=== PATIENT | female | born 1955 | race Caucasian/White ===

== ENCOUNTER → 2017-02-10 | Outpatient (CLI) | payer MEDICARE | END | disposition home or self-care (01) | LOC: RAD 12:47 | PROVIDERS: ATTEND Nurse Practitioner | DX: R05 Cough (principal); Z98.1 Arthrodesis status | CPT/HCPCS: 71020 ==

== ENCOUNTER → 2017-03-22 | Outpatient (CLI) | payer MEDICARE | END | disposition home or self-care (01) | LOC: CFH 11:45 | PROVIDERS: ATTEND Nurse Practitioner | DX: Z12.2 Encounter for screening for malignant neoplasm of respiratory organs (principal); F17.210 Nicotine dependence, cigarettes, uncomplicated | CPT/HCPCS: G0297 ==

== ENCOUNTER 2017-05-05 18:14 | Inpatient (IN) | payer MEDICARE, OTHER ==
[~2017-05-05] VITALS: Ht 167.6 cm; Wt 106.2 kg
[2017-05-05] MEDS ORDERED: ALBUTEROL SULFATE 2.5 MG/3 ML NPPB ONE (18:30)
[2017-05-05 18:48] LABS: HEMATOCRIT 36.8 % (34.6-47.8)
[2017-05-05] MEDS ORDERED: ALBUTEROL SULFATE 2.5 MG/3 ML ONE (18:56)
[2017-05-05 19:01] LABS: ASPARTATE AMINO TRANSFERASE 16 U/L (15-37); BLOOD UREA NITROGEN 17 mg/dL (7-18)
[2017-05-05] MEDS ORDERED: ACETAMINOPHEN 500 MG TABLET PO ONE (20:00)
[2017-05-05] MEDS ORDERED: ACETAMINOPHEN 500 MG TABLET ONE (20:09)
[2017-05-05] MEDS ORDERED: IPRA0.2S35 INH (20:24)
[2017-05-05] MEDS ORDERED: ALPR-475 PO (20:24)
[2017-05-05] MEDS ORDERED: ASPI-496 PO (20:24)
[2017-05-05] MEDS ORDERED: ALBU8.5H3 INH (20:24)
[2017-05-05] MEDS ORDERED: hydrALAzine 20 MG/ML, 1ML IVPush PRN (21:00)
[2017-05-05] MEDS ORDERED: NITROGLYCERIN 0.4 MG BOTTLE (25 TABS) SL PRN (21:00)
[2017-05-05] MEDS ORDERED: ONDANSETRON 2MG/ML, 2ML IVPush PRN (21:00)
[2017-05-05] MEDS ORDERED: POLYETHYLENE GLYCOL 17 GM PACKET PO PRN (21:00)
[2017-05-05] MEDS ORDERED: AZITHROMYCIN 500 MG TABLET PO ONE (21:00)
[2017-05-05] MEDS ORDERED: ONDANSETRON ODT 4 MG PO PRN (21:00)
[2017-05-05] MEDS ORDERED: LABETALOL 5MG/ML, 20ML IVPush PRN (21:00)
[2017-05-05] MEDS ORDERED: AZITHROMYCIN 250 MG TABLET ONE (21:38)
[2017-05-05] MEDS ORDERED: HEPARIN 5,000 UNITS/ML, 1ML ONE (21:38)
[2017-05-05] MEDS: HEPARIN 5,000 UNITS/ML, 1ML SQ SCH (21:46)
[2017-05-05] MEDS ORDERED: ALBUTEROL/IPRATROPIUM 2.5MG/0.5MG, 3 ML ONE (21:56)
[2017-05-05 23:00] VITALS: BP 134/84
[2017-05-05] MEDS ORDERED: ALBUTEROL/IPRATROPIUM 2.5MG/0.5MG, 3 ML NPPB SCH (23:00)
[2017-05-05] MEDS ORDERED: ALBUTEROL/IPRATROPIUM 2.5MG/0.5MG, 3 ML NPPB PRN (23:00)
[2017-05-06] MEDS: D5%-0.45NACL+KCL 20MEQ 1,000 ML IV SCH ×3 (01:02→23:33)
[2017-05-06 03:00] VITALS: BP 120/79
[2017-05-06] MEDS: ALBUTEROL/IPRATROPIUM 2.5MG/0.5MG, 3 ML NPPB SCH ×6 (03:30→21:36)
[2017-05-06 05:07] VITALS: BP 134/84
[2017-05-06] MEDS: HEPARIN 5,000 UNITS/ML, 1ML SQ SCH ×3 (05:20→23:33)
[2017-05-06 06:13] LABS: HEMATOCRIT 34.7 % (34.6-47.8); HEMOGLOBIN 11.3 g/dL (11.7-16.4); WHITE BLOOD COUNT 9.2 x10^3/uL (3.4-10)
[2017-05-06 06:26] LABS: BLOOD UREA NITROGEN 19 mg/dL (7-18)
[2017-05-06 07:31] VITALS: BP 116/81
[2017-05-06] MEDS: PANTOPROZOLE 40MG TABLET PO SCH (07:46)
[2017-05-06] MEDS: ACETAMINOPHEN 325 MG TABLET PO PRN (07:50)
[2017-05-06] MEDS: AZITHROMYCIN 250 MG TABLET PO SCH (07:51)
[2017-05-06] MEDS: SENNA/DOCUSATE TABLET PO SCH (07:53)
[2017-05-06] MEDS: GUAIFENESIN/DM 100-10MG, 5ML UDC PO PRN ×2 (11:22→15:41)
[2017-05-06] MEDS: HYDROcodone/APAP 5/325 TABLET PO PRN ×2 (11:53→15:46)
[2017-05-06 14:35] VITALS: BP 132/72
[2017-05-06 19:51] VITALS: BP 111/70
[2017-05-07] MEDS: GUAIFENESIN/DM 100-10MG, 5ML UDC PO PRN ×2 (00:45→04:03)
[2017-05-07 01:58] VITALS: BP 118/74
[2017-05-07] MEDS: ALBUTEROL/IPRATROPIUM 2.5MG/0.5MG, 3 ML NPPB SCH ×5 (06:00→22:35)
[2017-05-07] MEDS: HEPARIN 5,000 UNITS/ML, 1ML SQ SCH ×2 (07:51→16:45)
[2017-05-07] MEDS: GUAIFENESIN 200 MG TABLET PO SCH ×4 (07:52→20:16)
[2017-05-07] MEDS: AZITHROMYCIN 250 MG TABLET PO SCH (07:52)
[2017-05-07] MEDS: PANTOPROZOLE 40MG TABLET PO SCH (07:52)
[2017-05-07] MEDS: SENNA/DOCUSATE TABLET PO SCH (07:52)
[2017-05-07 08:02] VITALS: BP 130/80
[2017-05-07] MEDS: ACETAMINOPHEN 325 MG TABLET PO PRN ×2 (09:56→20:16)
[2017-05-07] MEDS: D5%-0.45NACL+KCL 20MEQ 1,000 ML IV SCH ×2 (09:57→21:38)
[2017-05-07 14:00] VITALS: BP 123/65
[2017-05-07] MEDS: GUAIFENESIN/COD200MG-20MG/10ML LIQUID PO PRN (16:55)
[2017-05-07] MEDS ORDERED: POLYETHYLENE GLYCOL 17 GM PACKET PO PRN (21:00)
[2017-05-07] MEDS ORDERED: ONDANSETRON ODT 4 MG PO PRN (21:00)
[2017-05-07] MEDS ORDERED: LABETALOL 5MG/ML, 20ML IVPush PRN (21:00)
[2017-05-07] MEDS ORDERED: hydrALAzine 20 MG/ML, 1ML IVPush PRN (21:00)
[2017-05-07] MEDS ORDERED: ONDANSETRON 2MG/ML, 2ML IVPush PRN (21:00)
[2017-05-07] MEDS ORDERED: NITROGLYCERIN 0.4 MG BOTTLE (25 TABS) SL PRN (21:00)
[2017-05-07 21:14] VITALS: BP 125/80
[2017-05-08 02:37] VITALS: BP 146/86
[2017-05-08] MEDS: ALBUTEROL/IPRATROPIUM 2.5MG/0.5MG, 3 ML NPPB SCH ×4 (02:45→14:00)
[2017-05-08] MEDS: GUAIFENESIN/COD200MG-20MG/10ML LIQUID PO PRN (02:54)
[2017-05-08] MEDS: HEPARIN 5,000 UNITS/ML, 1ML SQ SCH ×2 (05:06→13:03)
[2017-05-08] MEDS: GUAIFENESIN 200 MG TABLET PO SCH (05:06)
[2017-05-08 07:03] LABS: BLOOD UREA NITROGEN 16 mg/dL (7-18)
[2017-05-08] MEDS: SENNA/DOCUSATE TABLET PO SCH (08:30)
[2017-05-08] MEDS: PANTOPROZOLE 40MG TABLET PO SCH (08:30)
[2017-05-08] MEDS: D5%-0.45NACL+KCL 20MEQ 1,000 ML IV SCH (08:30)
[2017-05-08] MEDS: AZITHROMYCIN 250 MG TABLET PO SCH (08:31)
[2017-05-08] MEDS: ACETAMINOPHEN 325 MG TABLET PO PRN ×2 (08:34→13:05)
[2017-05-08 08:42] VITALS: BP 147/85
[2017-05-08] MEDS ORDERED: AZIT250T89 PO (14:18)
[2017-05-08] MEDS ORDERED: PRED20TA PO (14:18)
[2017-05-08] MEDS ORDERED: GUAI10LI PO (14:18)
== END 2017-05-08 17:29 | disposition home or self-care (01) | DRG 683 ==
LOC: ED 20:48 → EDIP 20:50 → 3NE 23:04
PROVIDERS: ADMIT Family Medicine; ATTEND Family Medicine
DX: N17.9 Acute kidney failure, unspecified (principal); J44.1 Chronic obstructive pulmonary disease with (acute) exacerbation; E11.65 Type 2 diabetes mellitus with hyperglycemia; F32.9 Major depressive disorder, single episode, unspecified; F41.9 Anxiety disorder, unspecified; M79.89 Other specified soft tissue disorders; Z96.641 Presence of right artificial hip joint; Z17.1 Estrogen receptor negative status [ER-]; Z87.891 Personal history of nicotine dependence; Z98.1 Arthrodesis status; Z88.0 Allergy status to penicillin
CPT/HCPCS: 36415; 71010; 71020; 80048; 80053; 83880; 85025; 93005; 94640; 99285; J1644; J7613; J7620; J3480; J7512

== ENCOUNTER → 2017-10-03 | Outpatient (CLI) | payer MEDICARE ==
[~2017-10-03] MED LIST: ALBU8.5H8 INH; ALPR-475 PO; ASPI-496 PO; AZIT250T89 PO; GUAI10LI PO; IPRA0.2S35 INH; PRED20TA PO
== END | disposition home or self-care (01) ==
LOC: CFH 10:15
PROVIDERS: ATTEND Nurse Practitioner
DX: Z12.2 Encounter for screening for malignant neoplasm of respiratory organs (principal); R91.1 Solitary pulmonary nodule; F17.210 Nicotine dependence, cigarettes, uncomplicated
CPT/HCPCS: G0297

== ENCOUNTER → 2017-12-27 | Outpatient (CLI) | payer MEDICARE | END | disposition home or self-care (01) | LOC: CFH 10:21 | PROVIDERS: ATTEND Nurse Practitioner | DX: J44.9 Chronic obstructive pulmonary disease, unspecified (principal) | CPT/HCPCS: 71250 ==

== ENCOUNTER → 2018-10-12 | Outpatient (CLI) | payer MEDICARE | END | disposition home or self-care (01) | LOC: CFH 09:06 | PROVIDERS: ATTEND Internal Medicine | DX: R91.8 Other nonspecific abnormal finding of lung field (principal) | CPT/HCPCS: 71250 ==

== ENCOUNTER → 2019-10-25 | Outpatient (CLI) | payer MEDICARE ==
[~2019-10-25] MED LIST changes: -ALPR-475 PO; +ALPR0.5T7 PO
== END | disposition home or self-care (01) ==
LOC: CFH 08:35
PROVIDERS: ATTEND Nurse Practitioner
DX: J43.2 Centrilobular emphysema (principal); R91.8 Other nonspecific abnormal finding of lung field
CPT/HCPCS: 71250

== ENCOUNTER → 2020-11-26 | Outpatient (CLI) | payer MEDICARE | END | disposition home or self-care (01) | LOC: CFH 12:30 | PROVIDERS: ATTEND Internal Medicine | DX: Z12.2 Encounter for screening for malignant neoplasm of respiratory organs (principal); R91.8 Other nonspecific abnormal finding of lung field; F17.210 Nicotine dependence, cigarettes, uncomplicated | CPT/HCPCS: 71271 ==